=== PATIENT | male | born 1940 | race Caucasian/White ===

== ENCOUNTER 2017-11-23 16:39 | Inpatient (IN) | payer MEDICARE ==
[2017-11-23 17:13] LABS: #Basophils 0.2 thou/uL (0.0-0.2); #Lymphocytes 0.8 thou/uL (1.20-3.40); #Neutrophils 12.5 thou/uL (1.40-6.50); %Basophils 1.1 % (0.0-1.0); %Eosinophils 0.2 % (0.0-10.0); %Lymphocytes 5.5 % (21.0-51.0); %Monocytes 7.1 % (0.0-10.0); %Neutrophils 86.2 % (42.0-75.0); Hemoglobin 12.5 g/dL (14.0-18.0); Mean Corpuscular HGB CONC 34.8 g/dL (32.0-36.0); Mean Corpuscular Hemoglobin 31.6 pg (27.0-31.0); Mean Corpuscular Volume 90.8 fl (80.0-94.0); Mean Platelet Volume 7.3 fL (7.4-10.4); Platelet Count 408 thou/uL (130-400); RBC Distribution Width 12.2 % (11.5-14.5); Red Blood Cell (RBC) Count 3.97 mill/uL (4.70-6.10); White Blood Cell (WBC) Count 14.6 thou/uL (4.8-10.8)
[2017-11-23 17:23] LABS: INR-International Normal Ratio 1.3; PTT 40.3 SEC (22.9-36.1); Prothrombin Time 15.9 SEC (12.0-14.7)
[2017-11-23 17:26] LABS: ALT (SGPT) 8 U/L (8-55); AST (SGOT) 17 U/L (5-34); Albumin 3.8 g/dL (3.4-4.8); Alkaline Phosphatase 76 U/L (40-150); Anion Gap 21 mmol/L (10-20); BUN (Urea Nitrogen) 31 mg/dL (8.4-25.7); Bilirubin, Total 1.1 mg/dL (0.2-1.2); Calc. Creatinine Clearance 0 mL/min (70-130); Calcium 9.5 mg/dL (7.8-10.44); Carbon Dioxide 18 mmol/L (23-31); Chloride 101 mmol/L (98-107); Estimated GFR-MDRD 50; Globulin 3.9 g/dL (2.4-3.5); Glucose 190 mg/dL (83-110); Potassium 4.2 mmol/L (3.5-5.1); Protein, Total 7.7 g/dL (5.8-8.1); Sodium 136 mmol/L (136-145)
[2017-11-23 17:28] LABS: CKMB 1.2 ng/mL (0-6.6); Troponin I 0.161 ng/mL (< 0.028)
[2017-11-23] MEDS ORDERED: Azithromycin 500 MG VIAL ONE (17:48)
[2017-11-23] MEDS ORDERED: Nitroglycerin 2% Ointment 1 INCH/1 GM Packet ONE (17:58)
--- NOTE | 2017-11-23 18:15 | RAD ---
CHEST ONE VIEW: 11/23/17 HISTORY: Shortness of breath. COMPARISON: None. FINDINGS: Heart size is enlarged. Moderate interstitial edema. Small left effusion. No pneumothorax. No acute osseous abnormality. IMPRESSION: Cardiomegaly and moderate edema. Followup recommended. POS: MYLES
[2017-11-23] MEDS ORDERED: Sodium Chloride 0.9% 100 ML ONE (19:01)
[2017-11-23] MEDS ORDERED: cefTRIAXone\\ROCEPHIN 2 GM VIAL ONE (19:01)
[2017-11-23 20:14] LABS: Troponin I 0.173 ng/mL (< 0.028)
[2017-11-23 21:28] LABS: Lactic Acid 1.7 mmol/L (0.5-2.2)
[2017-11-23] MEDS ORDERED: Nitroglycerin 2% Ointment 1 INCH/1 GM Packet TOP SCH (23:59)
[2017-11-24] MEDS ORDERED: HumaLOG 300 UNITS/3 ML VIAL SC PRN (01:31)
[2017-11-24] MEDS ORDERED: Guaifenesin DM 100-10/5 ML UDCUP PO PRN (01:31)
[2017-11-24] MEDS ORDERED: Dextrose 50% Abboject 50 ML SYRINGE SLOW IVP PRN (01:31)
[2017-11-24] MEDS ORDERED: Dextrose 5% in Water 1,000 ML IV PRN (01:31)
[2017-11-24] MEDS ORDERED: Acetaminophen 325 MG TAB PO PRN (01:31)
[2017-11-24] MEDS ORDERED: Ondansetron HCl/PF 4 MG/2 ML Vial IVP PRN (01:31)
[2017-11-24 01:33] VITALS: BMI 20.2
[2017-11-24] MEDS: Cefepime 1 GM in Sodium Chloride 0.9% 100 ML IVPB SCH ×2 (02:34→14:58)
[2017-11-24 04:19] LABS: #Eosinphils 0.1 thou/uL (0.0-0.7); #Lymphocytes 0.8 thou/uL (1.20-3.40); #Monocytes 0.8 thou/uL (0.11-0.59); %Basophils 0.3 % (0.0-1.0); %Eosinophils 0.5 % (0.0-10.0); %Lymphocytes 7.2 % (21.0-51.0); %Monocytes 7.5 % (0.0-10.0); %Neutrophils 84.5 % (42.0-75.0); Hemoglobin 10.4 g/dL (14.0-18.0); Mean Corpuscular HGB CONC 33.6 g/dL (32.0-36.0); Mean Corpuscular Hemoglobin 31.5 pg (27.0-31.0); Mean Corpuscular Volume 93.7 fl (80.0-94.0); Mean Platelet Volume 7.2 fL (7.4-10.4); Platelet Count 320 thou/uL (130-400); RBC Distribution Width 12.7 % (11.5-14.5); Red Blood Cell (RBC) Count 3.29 mill/uL (4.70-6.10); White Blood Cell (WBC) Count 10.6 thou/uL (4.8-10.8)
[2017-11-24 04:35] LABS: Anion Gap 13 mmol/L (10-20); BUN (Urea Nitrogen) 32 mg/dL (8.4-25.7); Calc. Creatinine Clearance 52 mL/min (70-130); Carbon Dioxide 19 mmol/L (23-31); Chloride 106 mmol/L (98-107); Estimated GFR-MDRD 62; Glucose 153 mg/dL (83-110); Potassium 3.8 mmol/L (3.5-5.1); Sodium 134 mmol/L (136-145)
[2017-11-24] MEDS: Furosemide 40 MG/4 ML VIAL SLOW IVP SCH ×2 (04:40→14:58)
[2017-11-24] MEDS: Levothyroxine Sodium 112 MCG TAB PO SCH (06:15)
--- NOTE | 2017-11-24 07:28 | HP ---
REASON FOR ADMISSION: Acute CHF exacerbation, possible sepsis. HISTORY OF PRESENT ILLNESS: The patient gives history of having shortness of breath, which started on Wednesday. He in fact mowed his yard on Wednesday and felt okay after that, but on Wednesday, patient started to become extremely tired and he was in bed mostly. The patient went to Urgent Care in [place] on Wednesday afternoon and gave his blood work. He followed up with Dr. Meier yesterday around 3:30 p.m. He had saturations of 81% on room air and he felt like "he was wiped out". He has been getting short of breath even with minimal exertion. No complaints of chest pain or palpitation. He has dry cough but no expectoration. He has had subjective fever as well at home with temperatures ranging from 99.8 to 100.9 degrees. No urinary frequency or urgency. PAST MEDICAL AND SURGICAL HISTORY: History of diabetes mellitus type 2. No prior history of heart failure, Zonia-en-Y gastric bypass surgery with patient losing nearly 150 pounds. He was initially 300 pounds in 2001 and has come down to 154 pounds per patient. He has had cardiac catheterization prior to this procedure in 2001, which was normal per patient. Chronic anemia, hypothyroidism, hypertension, dyslipidemia, osteoporosis, cataract, glaucoma, right wrist surgery, right tibia and fibula surgery in 2005, prior colonoscopies which were normal, cholecystectomy, right femur surgery plus removal of hardware, tonsillectomy, vasectomy, depression, and diabetes mellitus type 2. CURRENT MEDICATIONS: The patient takes amitriptyline 50 mg p.o. at bedtime, calcium with Vitamin D 1 tab once daily, fludrocortisone 0.1 mg p.o. daily, Lantus 14 units subcu at bedtime, metformin 1000 mg p.o. twice daily, pioglitazone 30 mg p.o. daily, Pravachol 40 mg p.o. daily, sertraline 50 mg p.o. daily, Synthroid 125 mcg p.o. daily, Victoza 1.2 mg subcu daily, vitamin B12 of 2500 mcg p.o. daily. ALLERGIES: No known drug allergies. PERSONAL HISTORY: Does not abuse alcohol or drugs. No history of smoking. FAMILY HISTORY: Mother at the age of 52 years from breast cancer and its complications. Father lived up to 94 years, he had history of [place] and heart failure. CODE STATUS: FULL. is power of traffic law attorney. REVIEW OF SYSTEMS: The following complete review of systems was negative, unless otherwise mentioned in the HPI or below: Constitutional: Weight loss or gain, ability to conduct usual activities. Skin: Rash, itching. Eyes: Double vision, pain. ENT/Mouth: Nose bleeding, neck stiffness, pain, tenderness. Cardiovascular: Palpitations, dyspnea on exertion, orthopnea. Respiratory: Shortness of breath, wheezing, cough, hemoptysis, fever or night sweats. Gastrointestinal: Poor appetite, abdominal pain, heartburn, nausea, vomiting, constipation, or diarrhea. Genitourinary: Urgency, frequency, dysuria, nocturia. Musculoskeletal: Pain, swelling. Neurologic/Psychiatric: Anxiety, depression. Allergy/Immunologic: Skin rash, bleeding tendency. PHYSICAL EXAMINATION: GENERAL: The patient is a 77-year-old male who is currently in moderate respiratory distress. VITAL SIGNS: Blood pressure 126/76, pulse 110 per minute, respiratory rate 24 per minute, temperature 98.8 degrees Fahrenheit, saturating 90% on room air. NECK: Supple. There is elevated JVD. HEENT: Eyes: Extraocular muscles intact. Pupils reacting to light. Oral cavity: Mucous membranes are moist. No exudates or congestion. CARDIOVASCULAR SYSTEM: S1, S2 heard. Regular rhythm. S3 plus. RESPIRATORY SYSTEM: Air entry 1+ bilateral. Scattered rales plus in the infrascapular area. ABDOMEN: Soft, bowel sounds heard. No tenderness, rigidity or guarding. EXTREMITIES: No peripheral edema or calf tenderness. VASCULAR SYSTEM: Peripheral pulses 1+ bilateral, no ischemic ulcerations or gangrene. CENTRAL NERVOUS SYSTEM: No gross focal deficits seen. The patient is alert, awake, and oriented well. PSYCHIATRIC: The patient's mood is euthymic. No hallucinations or delusions. LABORATORY DATA AND X-RAY FINDINGS: EKG done shows sinus rhythm at 107 beats per minute. There is Q-wave seen in lead III, aVF, and poor R-wave progression. There is also frequent PVC seen. White count of 14, H and H 12 and 36, platelet count 408 with 86% neutrophils, MCV is 90. PT, INR 15 and 1.3 , PTT 40. Serum bicarbonate 18, BUN 31, creatinine 1.3, glucose 190. Lactic acid 4.2. Troponin I is indeterminate at 0.16, CK-MB 1.2. BNP 2587, albumin is 3.8. Influenza A and B antigens are negative. Chest x-ray done shows pulmonary vascular congestion with cardiomegaly by my review. CLINICAL IMPRESSION AND PLAN: The patient will be admitted to telemetry for acute congestive heart failure exacerbation, demand ischemia, acute respiratory failure with hypoxia on arrival, resolved. He will be on Lasix 40 mg IV at 6: 00 a.m. and 2:00 p.m. Echo with 2D Doppler will be obtained for left ventricular function and valvular structure. The patient has elevated white count despite findings of congestive heart failure and most likely might have underlying pneumonia with sepsis. In view of this, he will be placed on cefepime and Levaquin. Wagner cultures have been obtained in the ER. We will continue him on aspirin, Lipitor, Elavil, vitamin B12, Florinef, Synthroid, Actos, and Zoloft as before. We will place him on small dose of Cozaar and Coreg for now. His electrolytes will be closely monitored. We will obtain consultation with Dr. Silverman who is neon electrician for Cardiology this morning. We will also continue him on Lantus 14 units subcu q.a.m. Please note metformin will be held for now. We will continue to closely monitor him on telemetry. Please note I have seen and examined patient on 11/23/2017. MARYJANE
[2017-11-24] MEDS ORDERED: INSULIN GLARGINE HUM REC ANLOG 14 UNIT SQ SCH (09:00)
[2017-11-24] MEDS ORDERED: Cefepime 1 GM in Sodium Chloride 0.9% 100 ML IVPB SCH (09:00)
[2017-11-24] MEDS: Losartan 25 MG TAB PO SCH (09:03)
[2017-11-24] MEDS: Famotidine 20 MG TAB PO SCH ×2 (09:03→20:26)
[2017-11-24] MEDS: Carvedilol 3.125 MG TAB PO SCH ×2 (09:03→17:07)
[2017-11-24] MEDS: Pioglitazone HCl 45 MG TAB PO SCH (09:03)
[2017-11-24] MEDS: Insulin Glargine 14 UNITS in Pre-Filled Syringe 1 EACH SC SCH (09:03)
[2017-11-24] MEDS: Multivitamin W/ Minerals 1 TAB PO SCH (09:03)
[2017-11-24] MEDS: Enoxaparin Sodium 40 MG/0.4 ML SYRINGE SC SCH (09:04)
--- NOTE | 2017-11-24 11:37 | CON ---
DATE OF CONSULTATION: 11/24/2017 He is a 77-year-old gentleman who is 69 kilograms. He presented to the ER after his sats were in the 80s in his doctor's office. Temperature was 98, respirations 20. He stated that over the last evan ral days he had weakness, shortness of breath, no cough, no chest pain, no chills or sweats. Apparently he did have a low grade fever. But most of his problems was his marked weakness, inabilit y to walk even 20 feet without getting markedly dyspneic. He is essentially a nonsmoker, smoked ciga rs 2 a week for about a year. No history of pneumonia, TB, asthma. Prior to his recent symptoms a month ago he said he could walk at least a block without getting marke dly short of breath. No history of TB, pneumonia or asthma. PAST MEDICAL HISTORY: Pertinent mainly for diabetes, depression, hypothyroidism. MEDICATIONS: B12, Victoza, Synthroid 125, Zoloft 100, pravastatin 40, Pioglitazone 30 mg a day, metf ormin 1000, 2 tablets a day, Lantus 14 units once a day, Florinef 0.1 once a day, calcium, amitriptyl ine 25 a day. ALLERGIES: None. PAST SURGICAL HISTORY: He had a Zonia-en-Y surgery done. Weight loss, he lost 100 pounds many years ago. Cataract surgery. He has a surgery for a broken tibia and fibula, colonoscopy, gallbladder marley lenora, vasectomy. SOCIAL/FAMILY HISTORY: He is a retired engineering teacher. REVIEW OF SYSTEMS: Ten point negative. PHYSICAL EXAMINATION: VITAL SIGNS: Blood pressure is 113/82, sats are 93 on 4 liters, respiratory rate 24, pulse 108, temp erature 98. CHEST: Extensive crackles. CARDIAC: Normal S1, S2. ABDOMEN: Soft. LABORATORY: White count 10,000, H&H 10 and 30, platelet count 320, creatinine 1.5. His lactic acid 4.2. BNP is 2585. Troponin 0.13. IMPRESSION: 1. New onset dyspnea, probably secondary to congestive cardiomyopathy. 2. Chronic anemia from a Zonia-en-Y surgery for weight loss. 3. Depression. 4. Hypothyroidism. PLAN: Await input from Cardiology. Pulmonary will follow while in the [facility]. I would deescalate antibiotics if cultures are negative. I will follow. This is a 70 minute critical care time, 50% spent in direct patient care.
--- NOTE | 2017-11-24 14:16 | PDOC.PN ---
- Subjective Encounter Start Date: 11/24/17 Encounter Start Time: 14:14 Patient seen and examined, fmaily at beside, states he feels much better, all questions answered. - Objective Resuscitation Status: Resuscitation Status FULL:Full Resuscitation Vital Signs & Weight: Vital Signs (12 hours) Temp Pulse Pulse Pulse Resp BP BP 11/24/17 11:31 98.8 F 95 26 H 11/24/17 09:28 105 H 111 H 122/77 128/79 11/24/17 08:05 98.6 F 118 H 24 H 11/24/17 08:00 98.6 F 118 H 24 H 11/24/17 04:00 98.4 F 107 H 18 BP BP Pulse Ox Pulse Ox Pulse Ox 11/24/17 11:31 105/73 93 L 11/24/17 09:28 90 L 87 L 11/24/17 08:05 113/82 99 11/24/17 08:00 99 11/24/17 04:00 132/87 97 Weight Weight 153 lb 7 oz I&O: 11/23/17 11/24/17 11/25/17 06:59 06:59 06:59 Intake Total 300 Output Total 775 Balance -475 Result Diagrams: 11/24/17 03:38 11/24/17 03:38 Additional Labs: Accuchecks 11/24/17 11/24/17 10:21 06:08 POC Glucose 144 H 158 H Phys Exam - Physical Examination Constitutional: NAD HEENT: PERRLA, moist MMs, sclera anicteric Neck: no nodes, no JVD, supple Respiratory: no wheezing, no rales, no rhonchi Cardiovascular: RRR, no significant murmur, no rub Gastrointestinal: soft, non-tender, no distention Musculoskeletal: no edema, pulses present Neurological: non-focal, normal sensation, moves all 4 limbs Psychiatric: normal affect, A&O x 3 Skin: no rash, normal turgor Dx/Plan (1) CHF (congestive heart failure) Code(s): I50.9 - HEART FAILURE, UNSPECIFIED Status: Acute (2) Hypertension Code(s): I10 - ESSENTIAL (PRIMARY) HYPERTENSION Status: Acute (3) Diabetes mellitus Code(s): E11.9 - TYPE 2 DIABETES MELLITUS WITHOUT COMPLICATIONS Status: Acute (4) Hyperlipidemia Code(s): E78.5 - HYPERLIPIDEMIA, UNSPECIFIED Status: Acute (5) Pneumonia Code(s): J18.9 - PNEUMONIA, UNSPECIFIED ORGANISM Status: Acute - Plan * clinically feeling much better, keep in ICU for now, can transfer to telemetry in AM * pulm and cardio also following * cont abx * labs in AM * echo pending * case and plan d/w patient and at length, they understand and agree with this plan
[2017-11-24] MEDS: Cyanocobalamin (Vitamin B-12) 1,000 MCG TAB PO SCH (20:25)
[2017-11-24] MEDS: Amitriptyline HCl 100 MG TAB PO SCH (20:26)
[2017-11-24] MEDS: Atorvastatin Calcium 10 MG TAB PO SCH (20:26)
[2017-11-24] MEDS ORDERED: Fludrocortisone Acetate 0.1 MG TAB PO SCH (21:00)
[2017-11-24] MEDS ORDERED: Clopidogrel Bisulfate 75 MG TAB PO SCH (21:00)
[2017-11-25] MEDS: Cefepime 1 GM in Sodium Chloride 0.9% 100 ML IVPB SCH ×2 (01:33→13:59)
[2017-11-25] MEDS: Levothyroxine Sodium 112 MCG TAB PO SCH (06:00)
[2017-11-25] MEDS: Furosemide 40 MG/4 ML VIAL SLOW IVP SCH ×2 (06:00→13:59)
[2017-11-25 06:10] LABS: Cardiac Risk 2.3 (Less than 4.5)
--- NOTE | 2017-11-25 06:27 | CON ---
DATE OF CONSULTATION: 11/24/2017 HISTORY OF PRESENT ILLNESS: Israel Duff is a 77-year-old white male without any previous cardiac history. He has been noticing over the last 2 weeks, he has been having significantly increased fatigue. He denied any chest pain or shortness of breath. He did notice that he was having leg swelling. He also stated that he started drinking lot of water when he was told that he should stop drinking coffee. On 11/22/2017, he woke up to go to caodaism but noted extreme tiredness and increased shortness of breath with minimal activity. Again, he denied any chest discomfort. He stayed in bed all day. He denied any cough or fever. He then went to Urgent Care in [place] on 11/23/[address] Meier. He had O2 saturations of 81% on room air and he was transferred here for further care. At the present time, he has had improvement in his dyspnea. PAST MEDICAL HISTORY: Diabetes, hypothyroidism, hypercholesterolemia, anemia, and hypertension. OPERATIONS: In 2001, he underwent Zonia-en-Y gastric bypass surgery and has lost approximately 150 pounds. He also apparently had a cardiac catheterization prior to that surgery with normal coronary arteries according to the patient. Cholecystectomy, right femur surgery and then later removal of hardware, tonsillectomy, vasectomy, and right wrist surgery. MEDICATIONS: Amitriptyline 100 mg at bedtime, vitamin D3 of 1000 mg daily, Plavix 75 daily (He states he was started on this at least 10-15 years ago as well as an aspirin per day, but has since stopped taking the aspirin. He denies any history of stroke or TIA. He has never had any type of cardiac procedures or vascular procedures). B12 of 2000 mcg at bedtime, Florinef 0.1 q.p.m., Boniva, insulin, levothyroxine 112 mcg daily, metformin 2000 mg b.i.d., Victoza subcutaneous daily, Actos 45 mg daily, pravastatin 40 at bedtime, sertraline 50 q.p.m., zolpidem 10 mg at bedtime. ALLERGIES: None. SOCIAL HISTORY: Smoked cigars once a week for about a year or two, this was 20 years ago. He does not drink. FAMILY HISTORY: Father had myocardial infarction, but lived to the age of 94. REVIEW OF SYSTEMS: Twelve-point review of systems otherwise unremarkable. PHYSICAL EXAMINATION: VITAL SIGNS: Blood pressure 115/78, pulse 96. HEENT: PERRL. NECK: Supple. CHEST: Reveals crackles one half the way up the posterior lung tilley. CARDIOVASCULAR: S1 and S2 are normal, without any S3, S4, or murmurs. ABDOMEN: Normal bowel sounds, without tenderness, organomegaly. EXTREMITIES: Revealed 1+ pedal edema. No clubbing or cyanosis. NEUROLOGIC: Grossly intact. SKIN: Warm and dry. LABORATORY DATA: EKG reveals sinus tachycardia with rate of 107 per minute with PVC. No acute changes. Hemoglobin 10.4, hematocrit 30.8, white count 10, 600, platelets 320,000. INR 1.3. Sodium 134, potassium 3.8, chloride 106, carbon dioxide 19, BUN 32, creatinine 1.15. Lactic acid 4.2, troponin I 0.173. BNP 2585.7. TSH is normal. In August, cholesterol is 138, triglycerides 64 , HDL 78, LDL 47. IMAGING: Chest x-ray reveals cardiomegaly with moderate edema. IMPRESSION: 1. Probable acute on chronic systolic heart failure. He has elevated BNP. Rales on examination, edema on chest x-ray, and increased shortness of breath. His left ventricular dysfunction certainly may be due to severe coronary artery disease and a diabetic presenting without chest pain. 2. Hypercholesterolemia, under good control in August. 3. Hypertension. 4. Diabetes. 5. Positive family history. 6. Distant smoker. PLAN: Echo is pending. Mr. Duff will continue to be diuresed. His symptoms and pulmonary exam have improved. He has been placed appropriately on carvedilol. Aspirin has been started. There is probably no clinical indication for Plavix. He certainly may have severe coronary artery disease, may require bypass surgery and so I would discontinue the Plavix at this time since there is no indication for its use. Florinef also will be stopped since this causes sodium retention. Consideration should be given to cardiac catheterization once his heart failure has improved. MARYJANE
[2017-11-25 07:41] LABS: Anion Gap 19 mmol/L (10-20); BUN (Urea Nitrogen) 35 mg/dL (8.4-25.7); Calc. Creatinine Clearance 45 mL/min (70-130); Calcium 8.2 mg/dL (7.8-10.44); Carbon Dioxide 18 mmol/L (23-31); Chloride 102 mmol/L (98-107); Estimated GFR-MDRD 53; Glucose 115 mg/dL (83-110); Sodium 135 mmol/L (136-145)
[2017-11-25] MEDS: Enoxaparin Sodium 40 MG/0.4 ML SYRINGE SC SCH (08:47)
[2017-11-25] MEDS: Carvedilol 3.125 MG TAB PO SCH ×3 (08:47→20:39)
[2017-11-25] MEDS: Famotidine 20 MG TAB PO SCH (08:47)
[2017-11-25] MEDS: Insulin Glargine 14 UNITS in Pre-Filled Syringe 1 EACH SC SCH (08:47)
[2017-11-25] MEDS: Losartan 25 MG TAB PO SCH (08:48)
[2017-11-25] MEDS: Multivitamin W/ Minerals 1 TAB PO SCH (08:48)
[2017-11-25] MEDS: Pioglitazone HCl 45 MG TAB PO SCH (08:48)
--- NOTE | 2017-11-25 08:57 | RAD ---
SINGLE VIEW OF THE CHEST: COMPARISON: 11/23/17. HISTORY: CHF. FINDINGS: A single view of the chest shows a cardiomediastinal silhouette which is upper limits of normal in si ze. Diffuse mixed alveolar/interstitial opacities are unchanged. IMPRESSION: Stable exam. POS: MYLES
--- NOTE | 2017-11-25 11:24 | PRG ---
DATE OF SERVICE: 11/25/2017 SUBJECTIVE: Israel Duff is a 77-year-old gentleman who this morning he said he is feeling loren r, less short of breath. His x-ray shows diffuse finding consistent with pulmonary edema. OBJECTIVE: VITAL SIGNS: Sats are 91% on 3 liters, respirations 24, temperature 98, blood pressure 127/68. CHEST: Bilateral crackles. CARDIAC: Normal S1, S2. No gallops. ABDOMEN: Soft, no masses. LABORATORY DATA: His creatinine 1.3. Electrolytes are normal. IMPRESSION AND PLAN: Respiratory failure, probably congestive heart failure, possibly superimposed p neumonia. Continue empiric antibiotics, neb treatments, supportive care. Await input from Cardiology. We will follow.
--- NOTE | 2017-11-25 13:54 | PDOC.PN ---
- Subjective Encounter Start Date: 11/25/17 Encounter Start Time: 13:52 Patient seen and examined, states he feels a bit more SOb than yesterday, no other new issues or complaints, no family at bedside, all questions answered. - Objective Resuscitation Status: Resuscitation Status FULL:Full Resuscitation Vital Signs & Weight: Vital Signs (12 hours) Temp Pulse Resp BP Pulse Ox 11/25/17 11:52 91 20 88 L 11/25/17 11:36 97.6 F 92 24 H 125/80 90 L 11/25/17 07:37 97.8 F 94 24 H 91 L 11/25/17 07:16 97.8 F 94 24 H 127/68 90 L 11/25/17 06:00 98 20 89 L 11/25/17 04:00 98.4 F 100 18 130/88 92 L Weight Weight 151 lb 9 oz I&O: 11/24/17 11/25/17 11/26/17 06:59 06:59 06:59 Intake Total 300 2120 Output Total 775 2175 Balance -475 -55 Result Diagrams: 11/24/17 03:38 11/25/17 04:56 Additional Labs: Accuchecks 11/25/17 11/25/17 11/25/17 10:11 05:28 04:36 POC Glucose 144 H 119 H 117 H 11/24/17 11/24/17 20:07 16:34 POC Glucose 110 89 Phys Exam - Physical Examination mild distress, dry cough HEENT: PERRLA, moist MMs, sclera anicteric Neck: no nodes, no JVD, supple, full ROM inspiratory crackles all lung tilley Cardiovascular: no significant murmur, no rub tachycardic rate Gastrointestinal: soft, non-tender, no distention, positive bowel sounds Musculoskeletal: no edema, pulses present Neurological: non-focal, normal sensation Psychiatric: normal affect, A&O x 3 Skin: no rash, normal turgor Dx/Plan (1) CHF (congestive heart failure) Code(s): I50.9 - HEART FAILURE, UNSPECIFIED Status: Acute (2) Hypertension Code(s): I10 - ESSENTIAL (PRIMARY) HYPERTENSION Status: Acute (3) Diabetes mellitus Code(s): E11.9 - TYPE 2 DIABETES MELLITUS WITHOUT COMPLICATIONS Status: Acute (4) Hyperlipidemia Code(s): E78.5 - HYPERLIPIDEMIA, UNSPECIFIED Status: Acute (5) Pneumonia Code(s): J18.9 - PNEUMONIA, UNSPECIFIED ORGANISM Status: Acute - Plan * CXR shows volume * DC actos for now this may be contributing to his CHF decompensation * cont abx * will start bicitra for borderline metabolic acidosis, will DC once bicarb is above 22 * BP stable * transfer to telemetry if ok with cardio and pulmonary teams * case and plan d/w patient at length, he understands and agrees with this plna
[2017-11-25] MEDS: Bicitra 30 ML UDCUP PO SCH ×2 (18:30→22:48)
[2017-11-25] MEDS: Amitriptyline HCl 100 MG TAB PO SCH (20:37)
[2017-11-25] MEDS: Atorvastatin Calcium 10 MG TAB PO SCH (20:39)
[2017-11-25] MEDS: Cyanocobalamin (Vitamin B-12) 1,000 MCG TAB PO SCH (20:40)
[2017-11-26] MEDS: Cefepime 1 GM in Sodium Chloride 0.9% 100 ML IVPB SCH (01:31)
[2017-11-26 04:32] LABS: Anion Gap 15 mmol/L (10-20); BUN (Urea Nitrogen) 49 mg/dL (8.4-25.7); Calc. Creatinine Clearance 38 mL/min (70-130); Calcium 7.9 mg/dL (7.8-10.44); Carbon Dioxide 23 mmol/L (23-31); Chloride 102 mmol/L (98-107); Estimated GFR-MDRD 44; Glucose 105 mg/dL (83-110); Sodium 137 mmol/L (136-145)
[2017-11-26 04:40] LABS: Potassium 2.8 mmol/L (3.5-5.1)
[2017-11-26] MEDS ORDERED: Potassium Chloride 20 MEQ TAB PO SCH ×2 (05:15→13:00)
[2017-11-26] MEDS: Furosemide 40 MG/4 ML VIAL SLOW IVP SCH ×2 (05:31→14:27)
[2017-11-26] MEDS: Levothyroxine Sodium 112 MCG TAB PO SCH (05:31)
[2017-11-26 06:34] LABS: Actual Bicarbonate (HCO3a) 21.4 mEq/L (22-26); Base Excess (BEa) -0.9 mEq/L (0 (+/-) 2.5); CO2 Tension 28.7 mmHg (35.0-45.0); O2 Tension (PaO2) 45.8 mmHg (80.0-100.0); pH, Arterial 7.49 (7.35-7.45)
[2017-11-26 06:35] LABS: ALV-art Gradient 272.325 (0-20); Hematocrit-ABG 38.6 % (42.0-52.0); Hemoglobin (Hb) 12.2 g/dL (14.0-18.0); Puncture Site RR
[2017-11-26] MEDS ORDERED: Potassium Chloride 10 MEQ in Premix Bag 1 BAG IVPB SCH (08:45)
--- NOTE | 2017-11-26 09:17 | PDOC.PN ---
- Subjective Encounter Start Date: 11/26/17 Encounter Start Time: 09:15 Patient seen and examined, at bedside, no changes from yesterday, remains a bit confused and still requires venti-mask for oxygenation. No other new issues, all questions answered. - Objective Resuscitation Status: Resuscitation Status FULL:Full Resuscitation Vital Signs & Weight: Vital Signs (12 hours) Temp Pulse Resp BP Pulse Ox 11/26/17 07:36 97.0 F L 85 22 H 111/74 100 11/26/17 07:34 97.0 F L 73 22 H 95 11/26/17 06:44 87 L 11/26/17 06:00 74 32 H 87 L 11/26/17 04:00 93 L 11/26/17 03:52 97.0 F L 89 18 95/63 96 11/26/17 00:29 83 24 H 88 L 11/25/17 23:51 97.8 F 66 17 105/72 93 L Weight Weight 151 lb 14.4 oz I&O: 11/25/17 11/26/17 11/27/17 06:59 06:59 06:59 Intake Total 2120 1540 Output Total 2175 1000 Balance -55 540 Result Diagrams: 11/24/17 03:38 11/26/17 03:29 Additional Labs: Accuchecks 11/26/17 11/25/17 11/25/17 05:44 20:12 16:57 POC Glucose 99 129 H 103 11/25/17 10:11 POC Glucose 144 H Phys Exam - Physical Examination Constitutional: NAD HEENT: PERRLA ventimask in place Neck: no nodes inspiratory crackles B/L [place], much better than yesterday no respiratory distress Cardiovascular: RRR, no significant murmur, no rub Gastrointestinal: soft, non-tender, no distention, positive bowel sounds Musculoskeletal: no edema, pulses present Neurological: non-focal, normal sensation Skin: no rash, normal turgor Dx/Plan (1) CHF (congestive heart failure) Code(s): I50.9 - HEART FAILURE, UNSPECIFIED Status: Acute (2) Hypertension Code(s): I10 - ESSENTIAL (PRIMARY) HYPERTENSION Status: Acute (3) Diabetes mellitus Code(s): E11.9 - TYPE 2 DIABETES MELLITUS WITHOUT COMPLICATIONS Status: Acute (4) Hyperlipidemia Code(s): E78.5 - HYPERLIPIDEMIA, UNSPECIFIED Status: Acute (5) Pneumonia Code(s): J18.9 - PNEUMONIA, UNSPECIFIED ORGANISM Status: Acute - Plan * cont diuresis * CXR much improved, will hold off on CT scan for now as CXR improving * may have had a small role played by actos, will discontinue this drug at point in time of discharge * Echo pending for now * pulm and cardio following * keep in ICU for now * case and plan d/w patient and at length, they undrestand and agree with this plan
[2017-11-26 09:25] LABS: #Lymphocytes 0.5 thou/uL (1.20-3.40); #Monocytes 0.7 thou/uL (0.11-0.59); #Neutrophils 11.1 thou/uL (1.40-6.50); %Basophils 0.2 % (0.0-1.0); %Eosinophils 0.1 % (0.0-10.0); %Lymphocytes 4.4 % (21.0-51.0); %Monocytes 5.6 % (0.0-10.0); %Neutrophils 89.7 % (42.0-75.0); Hemoglobin 12.4 g/dL (14.0-18.0); Mean Platelet Volume 6.8 fL (7.4-10.4); Platelet Count 286 thou/uL (130-400); RBC Distribution Width 12.8 % (11.5-14.5); Red Blood Cell (RBC) Count 3.99 mill/uL (4.70-6.10); White Blood Cell (WBC) Count 12.4 thou/uL (4.8-10.8)
[2017-11-26] MEDS: Enoxaparin Sodium 40 MG/0.4 ML SYRINGE SC SCH (09:34)
[2017-11-26] MEDS: Insulin Glargine 14 UNITS in Pre-Filled Syringe 1 EACH SC SCH (09:34)
[2017-11-26] MEDS: Carvedilol 3.125 MG TAB PO SCH ×3 (09:34→17:06)
[2017-11-26] MEDS: Famotidine 20 MG TAB PO SCH (09:34)
[2017-11-26] MEDS: Multivitamin W/ Minerals 1 TAB PO SCH (09:35)
[2017-11-26] MEDS: Losartan 25 MG TAB PO SCH (09:35)
[2017-11-26] MEDS: Bicitra 30 ML UDCUP PO SCH ×4 (09:35→21:01)
--- NOTE | 2017-11-26 09:49 | RAD ---
PORTABLE AP CHEST XRAY: DATE: 11/26/17. HISTORY: CHF. COMPARISON: 11/25/17. FINDINGS: Again noted are increased interstitial opacities throughout the lungs bilaterally greater at each fernie g base. The interstitial densities do appear mildly improved compared to the prior exam but do persi st. The cardiac silhouette is magnified by projection. Pulmonary vasculature is at the upper limits of normal. IMPRESSION: Increased interstitial opacities predominantly at each lung base. Findings may be related to mild im provement in pulmonary edema or infectious process. POS: MYLES
--- NOTE | 2017-11-26 12:19 | PRG ---
DATE OF SERVICE: 11/26/2017 SUBJECTIVE: A 77-year-old gentleman, confused, hypoxic. OBJECTIVE: VITAL SIGNS: Sats were 100% on a nonrebreather, switch him to down to 50%, sats are in the mid 80s. Temperature 97, blood pressure 117/74. He is afebrile. His I's and O's have been 1540 in and 1000 out. CHEST: Bilateral crackles. CARDIAC: Normal S1, S2, no gallops. ABDOMEN: Soft, no masses. LABORATORY DATA: His creatinine is 1.5, BUN is 49. IMPRESSION: Respiratory failure, bilateral pulmonary infiltrates, congestive heart failure versus dial perimposed pneumonia versus adult respiratory distress syndrome with encephalopathy. PLAN: He is on Maxipime and Levaquin. I have added steroids to his present treatment. Continue supportive care. If condition gets worse, may require intubation. I discussed with his at bedside. She is concerned about his encephalopathy, which clearly is pr obably due to his hypoxemia. We will follow.
[2017-11-26] MEDS ORDERED: Communication Order-Pharmacy FS SCH (14:45)
[2017-11-26] MEDS: Atorvastatin Calcium 10 MG TAB PO SCH (20:58)
[2017-11-26] MEDS: Cyanocobalamin (Vitamin B-12) 1,000 MCG TAB PO SCH (20:58)
[2017-11-26] MEDS: Amitriptyline HCl 100 MG TAB PO SCH (20:58)
[2017-11-27 05:05] LABS: Anion Gap 17 mmol/L (10-20); BUN (Urea Nitrogen) 67 mg/dL (8.4-25.7); Calc. Creatinine Clearance 32 mL/min (70-130); Calcium 7.8 mg/dL (7.8-10.44); Carbon Dioxide 22 mmol/L (23-31); Chloride 106 mmol/L (98-107); Estimated GFR-MDRD 35; Glucose 238 mg/dL (83-110); Potassium 3.5 mmol/L (3.5-5.1); Sodium 141 mmol/L (136-145)
[2017-11-27] MEDS: HumaLOG 300 UNITS/3 ML VIAL SC PRN ×3 (05:35→17:47)
[2017-11-27] MEDS: Levothyroxine Sodium 112 MCG TAB PO SCH (05:37)
[2017-11-27] MEDS: Insulin Glargine 14 UNITS in Pre-Filled Syringe 1 EACH SC SCH (08:12)
[2017-11-27] MEDS: Enoxaparin Sodium 40 MG/0.4 ML SYRINGE SC SCH (08:13)
[2017-11-27] MEDS: Carvedilol 3.125 MG TAB PO SCH ×2 (08:13→17:42)
[2017-11-27] MEDS: Famotidine 20 MG TAB PO SCH (08:13)
[2017-11-27] MEDS: Multivitamin W/ Minerals 1 TAB PO SCH (08:14)
[2017-11-27] MEDS: Losartan 25 MG TAB PO SCH (08:14)
[2017-11-27] MEDS: Potassium Chloride 20 MEQ TAB PO SCH (08:14)
[2017-11-27] MEDS: Bicitra 30 ML UDCUP PO SCH ×4 (08:14→20:43)
[2017-11-27] MEDS ORDERED: Magnesium Sulfate 3 GM in Sodium Chloride 0.9% 100 ML IVPB SCH (09:00)
--- NOTE | 2017-11-27 11:00 | PDOC.PN ---
- Subjective Encounter Start Date: 11/27/17 Encounter Start Time: 10:58 Patient seen and examined, remains confused, the patient is not sleeping well and continues to have episodes where his SPO2 drops significantly when his oxygen is removed, the patient otherwise is very tired and family states he will sleep for 10-15mts and then wake up, no other issues, daughter and at bedside, all questions answered. - Objective Resuscitation Status: Resuscitation Status FULL:Full Resuscitation Vital Signs & Weight: Vital Signs (12 hours) Temp Pulse Resp BP BP Pulse Ox 11/27/17 07:50 78 18 92 L 11/27/17 07:28 97.1 F L 69 20 128/67 93 L 11/27/17 07:16 97.6 F 78 24 H 93 L 11/27/17 04:00 97.6 F 78 24 H 123/81 90 L 11/27/17 00:41 82 16 94 L 11/26/17 23:54 77 22 H 112/78 92 L Weight Weight 151 lb 3.2 oz I&O: 11/26/17 11/27/17 11/28/17 06:59 06:59 06:59 Intake Total 1540 900 Output Total 1000 900 Balance 540 0 Result Diagrams: 11/26/17 09:13 11/27/17 04:26 Additional Labs: Accuchecks 11/27/17 11/27/17 11/26/17 10:36 05:36 20:58 POC Glucose 307 H 246 H 234 H 11/26/17 16:53 POC Glucose 162 H Phys Exam - Physical Examination somnlence HEENT: PERRLA, moist MMs, sclera anicteric Neck: no nodes, no JVD, supple Respiratory: no wheezing, no rales, no rhonchi lungs are much clear as compared to before Cardiovascular: RRR, no significant murmur, no rub Gastrointestinal: soft, non-tender, no distention Musculoskeletal: no edema, pulses present Neurological: non-focal, normal sensation Deviation from normal: AAO x 3, but tired, sleeps after 2-3 sentences Skin: no rash, normal turgor Dx/Plan (1) CHF (congestive heart failure) Code(s): I50.9 - HEART FAILURE, UNSPECIFIED Status: Acute (2) Hypertension Code(s): I10 - ESSENTIAL (PRIMARY) HYPERTENSION Status: Acute (3) Diabetes mellitus Code(s): E11.9 - TYPE 2 DIABETES MELLITUS WITHOUT COMPLICATIONS Status: Acute (4) Hyperlipidemia Code(s): E78.5 - HYPERLIPIDEMIA, UNSPECIFIED Status: Acute (5) Pneumonia Code(s): J18.9 - PNEUMONIA, UNSPECIFIED ORGANISM Status: Acute - Plan * At this point in time CXR looks much better, patient still having episodes of hypoxia * ECHO shows very poor cardiac function, EF 15-20%, cardio following, life vest arrangements? * will obtain CT scan of chest, w/o contrast given renal dysfunction * blood cultures negative so far * unclear why patient continues to have hypoxia with such improvement on CXR, cont steroids * will hold abx for now as patient doesn't have a high WBC count or any other signs of sepsis, will monitor with daily labs for now * keep in IMCU * case and plan d/w patient's family at length, they understand and agree with this plan
--- NOTE | 2017-11-27 11:10 | RAD ---
PORTABLE CHEST: Date: 11/27/17 HISTORY: Respiratory distress. COMPARISON: Prior day's study. FINDINGS: Heart size is enlarged. Atherosclerotic changes of aorta are noted. Interstitial lung changes are sta ble. IMPRESSION: Stable exam. POS: MYLES
[2017-11-27 11:33] LABS: #Lymphocytes 0.3 thou/uL (1.20-3.40); #Monocytes 0.5 thou/uL (0.11-0.59); #Neutrophils 11.9 thou/uL (1.40-6.50); %Lymphocytes 2.3 % (21.0-51.0); %Neutrophils 93.7 % (42.0-75.0); Hemoglobin 11.6 g/dL (14.0-18.0); Mean Corpuscular HGB CONC 32.5 g/dL (32.0-36.0); Mean Corpuscular Hemoglobin 30.8 pg (27.0-31.0); Mean Corpuscular Volume 94.8 fl (80.0-94.0); Mean Platelet Volume 7.8 fL (7.4-10.4); Platelet Count 205 thou/uL (130-400); RBC Distribution Width 13.1 % (11.5-14.5); Red Blood Cell (RBC) Count 3.76 mill/uL (4.70-6.10); White Blood Cell (WBC) Count 12.7 thou/uL (4.8-10.8)
--- NOTE | 2017-11-27 11:54 | PRG ---
DATE OF SERVICE: 11/27/2017 SUBJECTIVE: Mr. Duff remains encephalopathic. PHYSICAL EXAMINATION: VITAL SIGNS: Temperature 97.1, pulse 78, respirations 18, O2 sat 90% on 6 liters, and blood pressure 120/67. HEENT: Unremarkable. NECK: No JVD. LUNGS: A few crackles in both bases. CARDIAC: S1 and S2, regular. ABDOMEN: Soft. EXTREMITIES: No edema. NEUROLOGIC: Very confused, but has no focality. LABORATORY DATA: Sodium 149, potassium 3.5, chloride 106, CO2 of 20, BUN 67, creatinine 1.8, and glu cose 238. ASSESSMENT: 1. Encephalopathy. 2. Acute on chronic heart failure. 3. Probable pneumonia. RECOMMENDATIONS: 1. I would go ahead and stop the steroids. 2. Diuretics are currently being held. 3. Melatonin at night to help him sleep.
[2017-11-27] MEDS ORDERED: DOBUTamine 500 mg/250 ml 250 ML IVPB SCH (13:15)
--- NOTE | 2017-11-27 14:56 | CT ---
CT THORAX NONCONTRAST: Date: 11/27/17 Time: 1202 hours HISTORY: 77-year-old male with hypoxia and dyspnea. History of congestive heart failure. COMPARISON: No prior chest CTs. FINDINGS: There are ground-glass and mosaic pulmonary densities throughout the entire right lower lobe, most of the right upper lobe, most of the left lower lobe, and small areas of the central left upper lobe. T here are regions of sparing with hyperlucency involving most of the left upper lobe and small portion s of anterior segment of right upper lobe medially. These areas of relative sparing could be emphysem atous areas with air trapping. There are small bilateral pleural effusions, right greater than left. There is diffuse bronchiectasis. No narrowing of the trachea or left and right mainstem bronchi. Heav y atherosclerotic calcification of LAD, LCX, and RCA. Suture lines around narrowed stomach and adjace nt small bowel loops. Cholecystectomy clips. No thoracic aortic aneurysm. Borderline or mild cardiome cortney without pericardial effusion. No pneumothorax. No mediastinal lymphadenopathy. IMPRESSION: 1. Ground-glass and mosaic pulmonary densities bilaterally, right asymmetrical worse than left. It i s uncertain whether these are acute (such as pulmonary edema) or chronic infiltrates. Acute pulmonary interstitial edema is slightly favored, because of the presence of small bilateral pleural effusions . 2. Coronary atherosclerotic disease. 3. Diffuse bronchiectasis. 4. Areas of hyperlucency, mostly in the left upper lobe, which may represent air trapping representi ng emphysema. 5. Status post bariatric surgery and cholecystectomy. RACHEL Oseguera POS: MYLES
[2017-11-27] MEDS: Atorvastatin Calcium 10 MG TAB PO SCH (20:43)
[2017-11-27] MEDS: Cyanocobalamin (Vitamin B-12) 1,000 MCG TAB PO SCH (20:43)
[2017-11-27] MEDS: Amitriptyline HCl 100 MG TAB PO SCH (20:43)
[2017-11-27] MEDS: Melatonin 3 MG TAB PO SCH (20:44)
--- NOTE | 2017-11-27 23:22 | PRG ---
DATE OF SERVICE: 11/27/2017 SUBJECTIVE: The patient was seen today, he still remains confused. Ejection fraction has been found to be 15%-20%. There is consideration for cardiac catheterization on Wednesday and still trying to diu rese the patient. We will start him on low dose dobutamine to see whether or not this will assist in helping to diurese the patient. His BNP has remained elevated. He continues to be confused. OBJECTIVE: VITAL SIGNS: Today reveals a blood pressure 128/67, respiratory rate is 20, heart rate is in the 60s to 70s. GENERAL: He continues to be very drowsy and sleepy. CHEST: Actually clear anteriorly without any rales, rhonchi or wheezing. CARDIOVASCULAR: Revealed a regular rhythm today without any significant ectopy or murmurs. MUSCULOSKELETAL: Lower extremities has no significant edema. NEUROLOGIC: The patient is fatigued. IMPRESSION: 1. Severe decrease in left ventricular systolic function with cardiomyopathy and congestive heart fa ilure. The plan is for cardiac catheterization next week, if the patient remains stable. 2. Hypertension. This is under good control at this time. 3. Hyperlipidemia. This will be controlled by the Primary Care Service. 4. Diabetes. This will also be controlled by the primary care service. We will be more than happy to continue to follow the patient with you from a cardiac standpoint. He obviously has a significant cardiomyopathy of unclear etiology at this time. We will see whether or not he responds to the dobu tamine.
[2017-11-28 04:49] LABS: Anion Gap 14 mmol/L (10-20); BUN (Urea Nitrogen) 76 mg/dL (8.4-25.7); Calc. Creatinine Clearance 30 mL/min (70-130); Calcium 7.9 mg/dL (7.8-10.44); Carbon Dioxide 26 mmol/L (23-31); Chloride 108 mmol/L (98-107); Estimated GFR-MDRD 32; Glucose 296 mg/dL (83-110); Potassium 3.9 mmol/L (3.5-5.1); Sodium 144 mmol/L (136-145)
[2017-11-28] MEDS: HumaLOG 300 UNITS/3 ML VIAL SC PRN (05:39)
[2017-11-28] MEDS: Levothyroxine Sodium 112 MCG TAB PO SCH (05:39)
[2017-11-28] MEDS: Losartan 25 MG TAB PO SCH (08:54)
[2017-11-28] MEDS: Famotidine 20 MG TAB PO SCH (08:54)
[2017-11-28] MEDS: Multivitamin W/ Minerals 1 TAB PO SCH (08:54)
[2017-11-28] MEDS: Potassium Chloride 20 MEQ TAB PO SCH (08:54)
[2017-11-28] MEDS: Carvedilol 3.125 MG TAB PO SCH ×2 (08:54→17:05)
[2017-11-28] MEDS: Bicitra 30 ML UDCUP PO SCH ×4 (08:55→21:28)
[2017-11-28] MEDS ORDERED: Insulin Glargine 16 UNITS in Pre-Filled Syringe 1 EACH SC SCH (09:00)
--- NOTE | 2017-11-28 10:32 | RAD ---
PORTABLE CHEST: Date: 11/28/17 HISTORY: Respiratory distress. COMPARISON: Prior day's study. FINDINGS: Heart size is enlarged. The parenchymal lung changes are felt to be fairly similar in appearance give n differences in technique. IMPRESSION: Stable exam. POS: BEREKET
--- NOTE | 2017-11-28 10:51 | PDOC.PN ---
- Subjective Encounter Start Date: 11/28/17 Encounter Start Time: 10:50 Patient seen and examined, and brother at bedside, patient's condition per family is no different from yesterday, no new issues or complaints, all questions answered. - Objective Resuscitation Status: Resuscitation Status DNR:Do Not Resuscitate Vital Signs & Weight: Vital Signs (12 hours) Temp Pulse Resp BP BP Pulse Ox 11/28/17 08:34 87 20 92 L 11/28/17 07:46 97.1 F L 105 H 25 H 118/58 L 96 11/28/17 07:31 97.0 F L 84 18 97 11/28/17 03:55 97.0 F L 84 18 123/73 97 11/28/17 00:43 62 20 95 11/28/17 00:00 75 22 H 111/71 95 Weight Weight 141 lb 12.8 oz I&O: 11/27/17 11/28/17 11/29/17 06:59 06:59 06:59 Intake Total 900 1280 Output Total 900 500 Balance 0 780 Result Diagrams: 11/27/17 11:20 11/28/17 03:40 Additional Labs: Accuchecks 11/28/17 11/27/17 11/27/17 05:37 20:32 17:10 POC Glucose 286 H 200 H 185 H 11/27/17 10:36 POC Glucose 307 H Phys Exam - Physical Examination mild discomfort, continues to try and remove his oxygen mask HEENT: PERRLA, moist MMs, sclera anicteric Neck: no nodes, no JVD, supple, full ROM B/L LE inspiratory crackles noted on lower lobes mild respiratory distress noted Cardiovascular: no significant murmur, no rub tachycardic Gastrointestinal: soft, non-tender, no distention, positive bowel sounds Musculoskeletal: no edema, pulses present Neurological: non-focal, normal sensation Psychiatric: normal affect Deviation from normal: AAO to person and place only Skin: no rash, normal turgor Dx/Plan (1) CHF (congestive heart failure) Code(s): I50.9 - HEART FAILURE, UNSPECIFIED Status: Acute (2) Hypertension Code(s): I10 - ESSENTIAL (PRIMARY) HYPERTENSION Status: Acute (3) Diabetes mellitus Code(s): E11.9 - TYPE 2 DIABETES MELLITUS WITHOUT COMPLICATIONS Status: Acute (4) Hyperlipidemia Code(s): E78.5 - HYPERLIPIDEMIA, UNSPECIFIED Status: Acute (5) Pneumonia Code(s): J18.9 - PNEUMONIA, UNSPECIFIED ORGANISM Status: Acute - Plan * At this point in time patient's prognosis appears to be very poor * the patient has an EF of 15-20%, and also has emphysematous changes along with pleural effusions * patient's volume removal is restricted given low BP * on dobutamine drip * cardio and pulmonary teams following * will continue medical management for now, keep in IMCU * case and plan d/w patient and family at length, they understand and agree with this plan
[2017-11-28] MEDS: Lorazepam 2 MG/ML VIAL SLOW IVP PRN ×3 (11:09→15:25)
--- NOTE | 2017-11-28 11:36 | PRG ---
DATE OF SERVICE: 11/28/2017 Thirty-minute conversation with family at bedside. SUBJECTIVE: Mr. Duff continues to get worse. He is talking about wanting to and wants his f amily to let go. OBJECTIVE: VITAL SIGNS: Temperature 97.1, pulse 87, respirations 20, O2 sat 92% on Venturi mask, blood pressure 118/58. HEENT: Remarkable for bitemporal wasting. NECK: No JVD. LUNGS: Poor air movement with crackles bilaterally. CARDIOVASCULAR: S1, S2, tachycardic. ABDOMEN: Soft. EXTREMITIES: Severe muscle wasting. LABORATORY DATA: Sodium 144, potassium 3.9, chloride 108, CO2 26, BUN 76, creatinine 2.0, glucose 29 6. His chest x-ray shows worse infiltrative changes. ASSESSMENT: Multiple organ failure including cardiomyopathy with severe decreased EF, renal insuffic iency, and hypoxic respiratory failure. PLAN: It is fairly clear at this point that the patient is not going to improve. It is striking the difference between the patient and his identical twin brother that is up seeing him right now. I sp hawa with the and the patient's son in the [place]. I told them that I thought the patient was oliva johnson. They are in agreement. We discussed resuscitative measures and they stated the patient would not want to be on machines or receive ACLS if he does have a cardiac arrest. I told him, I think, we sh ould shift to palliative mode. I will have the Palliative Care Team to meet with them. I have put a do not resuscitate order on the chart. I think we should consider probably cutting back on his medi cations if at all possible.
[2017-11-28] MEDS ORDERED: Morphine 10 MG/0.5 ML ORAL SYRINGE SL PRN (15:55)
[2017-11-28] MEDS: Haloperidol Lactate 5 MG/ML VIAL IM PRN (16:06)
[2017-11-28] MEDS: Morphine 4 MG/ML VIAL IV PRN (16:06)
[2017-11-28] MEDS: (Liraglutide [Victoza 2-Pak] 1.2 MG) SC SCH ×2 (18:41→18:42)
[2017-11-28 19:50] VITALS: BP 111/72; TEMP 97.9
[2017-11-28] MEDS: Atorvastatin Calcium 10 MG TAB PO SCH (20:25)
[2017-11-28] MEDS: Amitriptyline HCl 100 MG TAB PO SCH (20:25)
[2017-11-28] MEDS: Melatonin 3 MG TAB PO SCH (20:25)
[2017-11-28] MEDS: Cyanocobalamin (Vitamin B-12) 1,000 MCG TAB PO SCH (20:25)
[2017-11-29] MEDS: Haloperidol Lactate 5 MG/ML VIAL IM PRN (00:30)
[2017-11-29] MEDS: Lorazepam 2 MG/ML VIAL SLOW IVP PRN (01:13)
[2017-11-29] MEDS: Morphine 4 MG/ML VIAL IV PRN (01:21)
[2017-11-29] MEDS ORDERED: Sodium Chloride 0.9% 1,000 ML IV SCH (06:00)
--- NOTE | 2017-11-30 15:07 | DS ---
DATE OF : 11/29/2017 TIME OF : 247 in the morning. ADMITTING DIAGNOSES: Acute congestive heart failure, pneumonia, history of diabetes mellitus type 2, chronic anemia, hypothyroidism, hypertension, dyslipidemia, osteoarthritis, cataracts, and depressio n. DIAGNOSES AT TIME OF : End-stage heart failure with hypoxia, dyslipidemia, hypotension, hypothy roidism, osteoporosis, hypercarbia, and depression. HOSPITAL COURSE: This was a 77-year-old male who was admitted due to worsening shortness of breath w hen he was mowing his yard. Patient was admitted to the Internal Medicine team, placed in the ICU, f ollowed closely by Critical Care as well as Cardiology and palliative care team. The patient was fou nd to have pulmonary edema, aggressively diuresed. Patient had an echocardiogram done which showed a n ejection fraction of 15%-20%, tricuspid regurgitation, aortic valve sclerosis, mitral regurgitatio n as well, significant decline in cardiopulmonary function, difficulty oxygenating as well. Patient' s white count initially at point in time of admission was high, treated with antibiotics, came down. The patient had ABGs done which showed severe hypoxia with pO2 levels following a 46 and carbon diox rere levels at 27. The patient was becoming agitated throughout the admission and stayed in the ICU. After a long discussion with the patient and absolutely no recovery and continuous decline on 3 day s of aggressive treatment, a decision was made to place the patient on hospice out of care on 018. Patient received palliative care. On 11/29/2017 at 247, patient . Family was notified and the covering physician at that time was notified as well. All questions were answered to the dolores lopez's and son were at bedside at the time of .
--- NOTE | 2017-12-06 15:31 | PDOC.EVN ---
Event Note - Event Note Event Note: SUMMARY #[id number]
== END 2017-11-29 04:50 | disposition expired | DRG 291 ==
LOC: SCSER 16:39 → IMCU/EMU 18:03 → SCSER 21:52
PROVIDERS: ADMIT Emergency Medicine; ATTEND Emergency Medicine
DX: I13.0 Hypertensive heart and chronic kidney disease with heart failure and stage 1 through stage 4 chronic kidney disease, or unspecified chronic kidney disease (principal); J96.01 Acute respiratory failure with hypoxia; J18.9 Pneumonia, unspecified organism; G93.40 Encephalopathy, unspecified; I50.23 Acute on chronic systolic (congestive) heart failure; I24.8 Other forms of acute ischemic heart disease; Z51.5 Encounter for palliative care; I42.9 Cardiomyopathy, unspecified; E03.9 Hypothyroidism, unspecified; N18.9 Chronic kidney disease, unspecified; E11.22 Type 2 diabetes mellitus with diabetic chronic kidney disease; E78.5 Hyperlipidemia, unspecified; E78.00 Pure hypercholesterolemia, unspecified; D64.9 Anemia, unspecified; M81.0 Age-related osteoporosis without current pathological fracture; Z90.49 Acquired absence of other specified parts of digestive tract; F32.9 Major depressive disorder, single episode, unspecified; Z79.84 Long term (current) use of oral hypoglycemic drugs; Z79.4 Long term (current) use of insulin; Z79.899 Other long term (current) drug therapy; Z98.84 Bariatric surgery status; Z66 Do not resuscitate; I08.3 Combined rheumatic disorders of mitral, aortic and tricuspid valves
CPT/HCPCS: 36415; 36416; 71045; 71250; 80048; 80053; 80061; 81001; 82553; 82805; 83605; 83735; 83880; 84443; 84484; 85025; 85610; 85730; 87040; 87086; 87804; 93005; 93306; 93798; 94640; 94760; 96361; 96365; 96375; J0456; J0692; J0696; J1250; J1956; J3475; J3480; J7050; J7620